=== PATIENT | male | born 1950 | race Caucasian/White ===

== ENCOUNTER 2017-06-03 16:27 | Inpatient (IN) | payer OTHER, BC ==
--- NOTE | 2017-06-03 16:30 | EDPHY ---
H & P Time Seen by Provider: 06/03/17 16:29 Constitutional: Initial Vital Signs Temperature (C) 36.7 C 06/03/17 16:30 Heart Rate 77 06/03/17 16:30 Respiratory Rate 16 06/03/17 16:30 Blood Pressure 107/65 06/03/17 16:30 O2 Sat (%) 93 06/03/17 16:30 O2 Delivery Mode Room Air Allergies/Adverse Reactions: No Known Allergies Allergy (Verified 06/03/17 16:51) Home Medications: Medication Instructions Recorded Ativan 06/03/17 Depakote 06/03/17 Risperdal 06/03/17 Medical Decision Making ED Course/Re-evaluation: CHIEF COMPLAINT: Psychiatric evaluation HISTORY OF PRESENT ILLNESS: The patient is a 66 y/o male with a history of bipolar disorder complaining his psychiatric medications are not working. He reports feeling manic and anxious. He has associated sleeplessness. He requests new medication. REVIEW OF SYSTEMS: A 10 point review of systems was performed and is negative with the exception of the elements mentioned in the history of present illness. PHYSICAL EXAM: General Appearance: Alert, well hydrated, pacing, slow to respond. Head: Atraumatic without scalp tenderness or obvious injury Eyes: Pupils equal, round, reactive to light and accommodation, EOMI, no trauma , no injection. Nose: Atraumatic, no rhinorrhea. Neck: Normal to visual inspection Respiratory: No retractions, no distress, no wheezes, and no accessory muscle use. Cardiovascular: Regular rate and rhythm, no murmurs, rubs, or gallops. Gastrointestinal: Abdomen is soft, nontender, non-distended, no masses, no rebound, no guarding, no peritoneal signs. Musculoskeletal: Normal active ROM of all extremities, atraumatic. Neurological: Alert, appropriate, and interactive. Skin: No rashes, good turgor, no nodules on palpation. Past medical history: Bipolar disorder Past surgical history: Denies Family history: Non-contributory Social history: Lives in [place], retired, non-smoker DIFFERENTIAL DIAGNOSIS: The differential diagnosis for the patient's depression included but was not limited to functional and major depression, bipolar disorder, jennifer, situational depression, medication side effect, drugs, and alcohol abuse. MEDICAL DECISION MAKING: Patient is in no acute distress and is hemodynamically stable. We are awaiting psychiatric team's evaluation. Patient has known history of psychiatric disorders and is here for evaluation. (Christian Don) Other Provider: Patient signed out to me by Dr. Don. Notified by nurse at 10:40 that patient has been accepted to [facility] for inpatient treatment. (Nico Nolan) - Data Points Laboratory Results: Laboratory Results 06/03/17 16:48 06/03/17 16:48 06/03/17 06/03/17 06/03/17 20:09 16:48 16:48 WBC 8.81 10^3/uL 10^3/uL (3.80-9.50) RBC 4.09 10^6/uL L 10^6/uL (4.40-6.38) Hgb 13.4 g/dL L g/dL (13.7-17.5) Hct 39.9 % L % (40.0-51.0) MCV 97.6 fL fL (81.5-99.8) MCH 32.8 pg pg (27.9-34.1) MCHC 33.6 g/dL g/dL (32.4-36.7) RDW 14.1 % % (11.5-15.2) Plt Count 259 10^3/uL 10^3/uL (150-400) MPV 10.4 fL fL (8.7-11.7) Neut % (Auto) 66.6 % % (39.3-74.2) Lymph % (Auto) 17.0 % % (15.0-45.0) [place] % (Auto) 11.5 % % (4.5-13.0) Eos % (Auto) 3.6 % % (0.6-7.6) Baso % (Auto) 0.5 % % (0.3-1.7) Nucleat RBC Rel Count 0.0 % % (0.0-0.2) Absolute Neuts (auto) 5.87 10^3/uL 10^3/uL (1.70-6.50) Absolute Lymphs (auto) 1.50 10^3/uL 10^3/uL (1.00-3.00) Absolute Monos (auto) 1.01 10^3/uL H 10^3/uL (0.30-0.80) Absolute Eos (auto) 0.32 10^3/uL 10^3/uL (0.03-0.40) Absolute Basos (auto) 0.04 10^3/uL 10^3/uL (0.02-0.10) Absolute Nucleated RBC 0.00 10^3/uL 10^3/uL (0-0.01) Immature Gran % 0.8 % % (0.0-1.1) Immature Gran # 0.07 10^3/uL 10^3/uL (0.00-0.10) Sodium 139 mEq/L mEq/L (135-145) Potassium 3.9 mEq/L mEq/L (3.5-5.2) Chloride 103 mEq/L mEq/L (97-110) Carbon Dioxide 25 mEq/l mEq/l (22-31) Anion Gap 11 mEq/L mEq/L (8-16) BUN 14 mg/dL mg/dL (7-23) Creatinine 0.7 mg/dL mg/dL (0.7-1.3) Estimated GFR > 60 Glucose 86 mg/dL mg/dL (70-100) Calcium 8.6 mg/dL mg/dL (8.5-10.4) Salicylates < 1.0 mg/dL L mg/dL (2.0-20.0) Urine Opiates Screen NEGATIVE (NEGATIVE) Acetaminophen < 10 mcg/mL L mcg/mL (10-30) Urine Barbiturates NEGATIVE (NEGATIVE) Ur Phencyclidine Scrn NEGATIVE (NEGATIVE) Ur Amphetamine Screen NEGATIVE (NEGATIVE) U Benzodiazepines Scrn NEGATIVE (NEGATIVE) Urine Cocaine Screen NEGATIVE (NEGATIVE) U Marijuana (THC) Screen NEGATIVE (NEGATIVE) Ethyl Alcohol < 10 mg/dL mg/dL (0-10) Medications Given: Discontinued Medications Lorazepam (Ativan) 1 mg PO EDNOW ONE Stop: 06/03/17 20:04 Last Admin: 06/03/17 20:12 Dose: 1 mg Departure - Departure Disposition: [facility] IP Clinical Impression: Bipolar disorder Condition: Fair Referrals: Patient,NotPresent [Unknown] - As per Instructions Report Scribed for: Christian Don Report Scribed by: Pauline Knowles Date of Report: 06/03/17 Time of Report: 22:13
[2017-06-03 16:57] LABS: PLATELET COUNT 259 10^3/uL (150-400)
[2017-06-03] MEDS ORDERED: LORazepam 1 MG TAB PO ONE (20:03)
[2017-06-03] MEDS ORDERED: OLANZapine DISINTEGR 5 MG TAB PO PRN (22:00)
[2017-06-03] MEDS ORDERED: MAG HYDROX/AL HYDROX/SIMETH 30 ML UDCUP PO PRN (22:00)
[2017-06-03] MEDS ORDERED: ACETAMINOPHEN 325 MG TAB PO PRN (22:00)
[2017-06-03] MEDS ORDERED: MAGNESIUM HYDROXIDE 30 ML UDCUP PO PRN (22:00)
[2017-06-03] MEDS ORDERED: LORazepam 0.5 MG TAB PO PRN (22:00)
[2017-06-04] MEDS ORDERED: MAGNESIUM HYDROXIDE 30 ML UDCUP PO PRN (10:40)
[2017-06-04] MEDS ORDERED: ACETAMINOPHEN 325 MG TAB PO PRN (10:40)
[2017-06-04] MEDS ORDERED: ALBUTEROL 60 PUFFS/8 GM MDI IH PRN (10:42)
[2017-06-04] MEDS ORDERED: DIVALPROEX NA 250 MG TAB PO SCH (10:45)
[2017-06-04] MEDS ORDERED: ALBUTEROL 200 PUFFS/18 GM MDI IH PRN (10:47)
[2017-06-04] MEDS: LORazepam 0.5 MG TAB PO SCH ×2 (11:01→20:33)
[2017-06-04] MEDS ORDERED: FLUTICASONE NASAL 120 SPRAYS/16 GM MDI EACHNARE PRN (11:51)
[2017-06-04] MEDS ORDERED: GABAPENTIN 100 MG CAP PO PRN (11:53)
[2017-06-04] MEDS ORDERED: QUEtiapine FUMARATE 25 MG TAB PO PRN ×2 (11:53→14:05)
--- NOTE | 2017-06-04 12:50 | BAPA ---
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 He is unable to explain how he got to the hospital. He says "Ask my sister." He denies feeling severe emotional distress, but then later reports having severe anxiety and "This is making me nervous." The patient is oriented to [employer], but believes it is 1984. He is unable to answer other questions regarding orientation. He is aware that he is in the hospital. He is unable to name the hospital. The patient denies feeling depressed, hopeless, or suicidal. He does report severe insomnia and not sleeping at night. He does report an overabundance of thoughts and feeling anxious about the future. He denies auditory hallucinations or paranoia. The patient is a poor historian, and he gets up and walks away from the interview at times. Per the emergency room evaluation, the patient was taken by his sister to the [facility] walk-in clinic and then transferred to the emergency department. He reportedly according to his sister, phone number [phone], has had severe insomnia, pacing at night, scratching his face, reporting severe anxiety, and appearing agitated and disorganized beyond his baseline. His sister reports the patient has chronic cognitive impairment, with difficulty caring for himself. He is able to feed himself and dress himself, but needs daily support for medication compliance. The patient's brother in [place] is his payee for his pension. The sister also reports the patient has a visiting nurse from a home health agency, and the patient has a history of long term facility placements for poor self-care. The sister has not observed any delusional content or any aggressive behavior or self-injurious behavior other than the patient scratching himself. PAST PSYCHIATRIC HISTORY: The patient is unable to explain his current mental health treatment. He does endorse past psychiatric hospitalizations, but is unable to explain where. In our computer, it indicates the patient was hospitalized at [facility] in 2012 and 2013. The patient's sister reports the patient is currently in outpatient mental health treatment with Dr. Rosie Pires at [facility] in [place]. MEDICATIONS: Per the patient's sister, the patient takes Depakote 250 p.o. b.i.d., Ativan 0.5 mg p.o. b.i.d., gabapentin 100 mg p.o. q.h.s., atorvastatin 10 mg p.o. q.h.s., trazodone 25 mg p.o. q.h.s. p.r.n. for insomnia, and albuterol inhaler p.r.n. for asthma. The pharmacy records reported to our pharmacy is that the patient may have been taking a low dose of Risperdal recently, perhaps 0.25. The patient also may have been prescribed other doses of Depakote such as 375 b.i.d., as well as levothyroxine 50 mcg a day and Singulair 10 mg a day. ALLERGIES: No known drug allergies. PAST MEDICAL HISTORY: The patient's sister is unclear about the patient's medical history. Based on the patient's medications, it appears the patient has a history of hyperlipidemia and hypothyroidism. The patient also appears to have some weakness in his left upper extremity of unclear duration. SOCIAL HISTORY: The patient is a poor historian. He reports he was raised by his parents in [place], [place]. He reports he graduated from college. He has never been . He has never been in the . 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 He is unable to explain how long. He has no children. He reports his brother in [place] manages his pension. He lives in a [facility] that he owns with his sister. The patient denies childhood abuse or neglect. FAMILY HISTORY: The patient's brother, mother, and father all apparently committed suicide. VITAL SIGNS: He is 167 cm tall and 67.5 kg, with a BMI of 24. This morning, his vitals are 129/84, heart rate 84, respiratory rate 16, pulse ox 99% on room air, and temperature afebrile. LABORATORY DATA: White blood cell count 8.8, hemoglobin 13.4, platelet count 259. Sodium 139, potassium 3.9, creatinine 0.7, glucose 86, calcium 8.6, total bilirubin 0.7, AST 30, ALT 31, alk phos 65, albumin 3.6. B12 930. TSH 3.0. Urine drug screen was negative. Alcohol negative. Acetaminophen negative. Salicylates negative. An add-on Depakote level is pending. MENTAL STATUS EXAMINATION: He is an alert white male, who is overweight. He is ambulatory. He appears to have some element of contraction in his left upper extremity, but is moving all 4 extremities. He has mild cogwheeling. The patient has an intense stare. His speech is regular in rate and rhythm, but very few words. He has fragmented responses to questions. He is oriented to May and hospital, but not the day of the week, day of the month, year, or name of the hospital. He is able to draw a kaw and put markers in for the face of a clock, but he is unable to put the hands on the clock. He appears to have severe cognitive impairment. He describes his mood as, "I want to be an artist." His affect is euphoric and excited. He also appears anxious and is standing up and pacing at times. He denies any thoughts to hurt himself or others. He denies paranoia or hallucinations. He has poor insight and impaired judgment. ASSESSMENT: Unspecified bipolar disorder, major neurocognitive disorder of unknown type. PLAN: 1. The patient appears gravely disabled by cognitive impairment and does not appear able to care for himself. However, he has been living in a condominium that he apparently owns with daily support from his sister, as well as a home health agency. 2. The patient apparently has symptoms of anxiety and bipolar disorder, with self-harming behaviors including scratching his face, pacing, severe agitation, and severe insomnia, so he is not apparently at his baseline level of functioning. Therefore, we will monitor the patient on the unit and restart Depakote 250 b.i.d., Ativan 0.5 mg p.o. b.i.d., and gabapentin 100 mg p.o. q.h.s., and monitor the patient's behavior and symptoms. 3. I ordered an extra dose of gabapentin 100 mg p.o. q.h.s. p.r.n. for insomnia. 4. I ordered Seroquel 12.5 mg p.o. q.4 hours p.r.n. for severe agitation or psychosis. The patient appears to have mild increased tone and may have a Parkinson disease spectrum disorder, so we will avoid high potency antipsychotics at this time. 5. I ordered p.r.n. albuterol as well as the patient's Singulair for his history of asthma. 6. The Depakote level is pending. Depending on this dosing, we will probably increase the patient's Depakote as the patient appears to be manic, as he has a euphoric affect and appears hyperkinetic on the unit, and has had severe insomnia. 7. Order levothyroxine 50 mcg daily per the pharmacy's report. The patient's TSH in the ER was normal. 8. We will monitor the patient's behavior on the unit. 9. The patient will be on an M1 hold for grave disability, as the patient does not appear competent to care for himself if he were to sign out of the hospital in the middle of the night. 10. We will attempt to get collateral information from Dr. Pires at [facility]. 11. When the patient is calm and cooperative, we will try to obtain a baseline head CT scan to rule out cerebrovascular disease causing cognitive impairment. The patient will have a baseline physical exam by the hospitalist later today. ADDENDUM: 1. Ordered baseline Head CT without contrast. Sister reported cognitive impairment and SNF placement for most of past 2 years, with falling episodes one year ago evaluated by Neurology at [facility]. 2. Patient signed MARIANELA for [facility], left a message for Dr. Pires requesting call back 3. Valproic Acid level 75. Increased Depakote 250mg BID to target anxiety, agitation, insomnia 4. Requested social work consult due to sister reporting difficulty monitoring patient 24 hours a day 7 days a week. She reported patient receives in home services from Sandra at [facility]. /[id number]/MODL MTDD
--- NOTE | 2017-06-04 13:46 | SOAPPROG ---
SOAP Progress Note Assessment/Plan: Assessment: Bipolar Disorder Anxiety, Insomnia Major Neurocognitive Disorder Sister Anita reports patient has been in nursing homes for 2 years for cognitive impairment. Patient had episodes of falling and hitting his head one year ago and was evaluated to [facility] and had a Neurology evaluation. Sister reports patient has anxiety and agitation and insomnia and she is having difficulty caring for patient. Plan reviewed with sister: Increase Depakote 250mg TID for bipolar disorder. Increase Ativan 0.5mg BID for anxiety Check Depakote level and BMP on Wednesday06/07/17 Monitor anxiety, insomnia, and irritability Social Work Consult Ordered baseline Head CT scan without contrast. Left message at [facility] with Dr. Pires for collateral, patient signed a MARIANELA 06/04/17 13:27 Objective: Vital Signs Temp Pulse Resp BP Pulse Ox 36.4 C 84 16 129/84 H 99 06/04/17 03:36 06/04/17 03:36 06/04/17 03:36 06/04/17 03:36 06/04/17 03:36 - Pending Discharge Pending Discharge Within 24 Hours: No Pending Discharge Within 48 Hours: No ICD10 Worksheet Patient Problems: Problems Problem Status Onset Bipolar disorder Acute Insomnia Acute Major neurocognitive disorder Acute Asthma Acute Hyperlipidemia Acute
[2017-06-04] MEDS: DIVALPROEX NA 250 MG TAB PO SCH ×2 (16:39→20:30)
[2017-06-04] MEDS: MONTELUKAST SODIUM 10 MG TAB PO SCH (16:40)
--- NOTE | 2017-06-04 17:18 | PDGENHP ---
History and Physical - Chief Complaint increased anxiety, jennifer symptoms - History of Present Illness 66 yo male with h/o bipolar disorder and cognitive impairment presented to ED with disorganized thoughts, anxiety, insomnia, agitation and concern that his bipolar meds were not working. Some self harm behaviors are noted with face scratching. No reported suicidality or homicidality. He was transferred to [address] [place] [address] for psychiatric stabilization. He then returned to [facility] for CT head, ordered by psychiatry team and I saw him here in the CT department. History Information - Allergies/Home Medication List Allergies/Adverse Reactions: No Known Allergies Allergy (Verified 06/03/17 16:51) Home Medications: Albuterol Sulfate [ALBUTEROL SULFATE] 3 ml IH Q6 PRN 06/04/17 [Last Taken Unknown] Albuterol [Proventil Inhaler HFA (*)] 2 puffs IH Q6 PRN 06/04/17 [Last Taken Unknown] Atorvastatin Calcium [Lipitor 10 mg (*)] 10 mg PO HS 06/04/17 [Last Taken Unknown] Diphenoxylate HCl/Atropine [Diphenoxylate-Atropine Tablet] 1 each PO Q6 PRN [Last Taken Unknown] Divalproex Sodium 250 mg PO DAILY@14 06/04/17 [Last Taken Unknown] Divalproex Sodium 375 mg PO BID 06/04/17 [Last Taken Unknown] Fluticasone Nasal [Flonase Nasal [place] (RX)] 1 sprays [place] DAILY PRN [Last Taken Unknown] Gabapentin [Neurontin 100 MG (*)] 100 mg PO HS 06/04/17 [Last Taken Unknown] LORazepam [Ativan (*)] 0.25 mg PO DAILY@14 06/04/17 [Last Taken Unknown] Levothyroxine [Synthroid 50 mcg (*)] 50 mcg PO DAILY06 06/04/17 [Last Taken Unknown] Lidocaine [Lidoderm] 1 each TP DAILY 06/04/17 [Last Taken Unknown] Montelukast Sodium [Singulair 10 mg (*)] 10 mg PO DAILY@1800 06/04/17 [Last Taken Unknown] traZODone [traZODONE 50MG (*)] 75 mg PO HS 06/04/17 [Last Taken Unknown] I have personally reviewed and updated: family history, medical history, social history, surgical history - Past Medical History asthma, hyperlipidemia Additional medical history: bipolar disorder. cognitive impairment. hypothyroidism - Surgical History Reports: no pertinent surgical hx - Family History Additional family history: Brother, mother and father by suicide - Social History Smoking Status: Never smoked Alcohol Use: None Additional social history: Lives independently with his sister Review of Systems Review of Systems: ROS: 10pt was reviewed & negative except for what was stated in HPI & below Physical Exam Physical Exam: Temp Pulse Resp BP Pulse Ox 36.4 C 84 16 129/84 H 99 06/04/17 03:36 06/04/17 03:36 06/04/17 03:36 06/04/17 03:36 06/04/17 03:36 Lab Data & Imaging Review 06/03/17 16:48 06/03/17 16:48 WBC 8.81 10^3/uL (3.80-9.50) 06/03/17 16:48 RBC 4.09 10^6/uL (4.40-6.38) L 06/03/17 16:48 Hgb 13.4 g/dL (13.7-17.5) L 06/03/17 16:48 Hct 39.9 % (40.0-51.0) L 06/03/17 16:48 MCV 97.6 fL (81.5-99.8) 06/03/17 16:48 MCH 32.8 pg (27.9-34.1) 06/03/17 16:48 MCHC 33.6 g/dL (32.4-36.7) 06/03/17 16:48 RDW 14.1 % (11.5-15.2) 06/03/17 16:48 Plt Count 259 10^3/uL (150-400) 06/03/17 16:48 MPV 10.4 fL (8.7-11.7) 06/03/17 16:48 Neut % (Auto) 66.6 % (39.3-74.2) 06/03/17 16:48 Lymph % (Auto) 17.0 % (15.0-45.0) 06/03/17 16:48 [place] % (Auto) 11.5 % (4.5-13.0) 06/03/17 16:48 Eos % (Auto) 3.6 % (0.6-7.6) 06/03/17 16:48 Baso % (Auto) 0.5 % (0.3-1.7) 06/03/17 16:48 Nucleat RBC Rel Count 0.0 % (0.0-0.2) 06/03/17 16:48 Absolute Neuts (auto) 5.87 10^3/uL (1.70-6.50) 06/03/17 16:48 Absolute Lymphs (auto) 1.50 10^3/uL (1.00-3.00) 06/03/17 16:48 Absolute Monos (auto) 1.01 10^3/uL (0.30-0.80) H 06/03/17 16:48 Absolute Eos (auto) 0.32 10^3/uL (0.03-0.40) 06/03/17 16:48 Absolute Basos (auto) 0.04 10^3/uL (0.02-0.10) 06/03/17 16:48 Absolute Nucleated RBC 0.00 10^3/uL (0-0.01) 06/03/17 16:48 Immature Gran % 0.8 % (0.0-1.1) 06/03/17 16:48 Immature Gran # 0.07 10^3/uL (0.00-0.10) 06/03/17 16:48 Sodium 139 mEq/L (135-145) 06/03/17 16:48 Potassium 3.9 mEq/L (3.5-5.2) 06/03/17 16:48 Chloride 103 mEq/L (97-110) 06/03/17 16:48 Carbon Dioxide 25 mEq/l (22-31) 06/03/17 16:48 Anion Gap 11 mEq/L (8-16) 06/03/17 16:48 BUN 14 mg/dL (7-23) 06/03/17 16:48 Creatinine 0.7 mg/dL (0.7-1.3) 06/03/17 16:48 Estimated GFR > 60 06/03/17 16:48 Glucose 86 mg/dL (70-100) 06/03/17 16:48 Calcium 8.6 mg/dL (8.5-10.4) 06/03/17 16:48 Total Bilirubin 0.7 mg/dL (0.1-1.4) 06/03/17 16:48 Conjugated Bilirubin 0.2 mg/dL (0.0-0.5) 06/03/17 16:48 Unconjugated Bilirubin 0.5 mg/dL (0.0-1.1) 06/03/17 16:48 AST 30 IU/L (17-59) 06/03/17 16:48 ALT 31 IU/L (21-72) 06/03/17 16:48 Alkaline Phosphatase 65 IU/L (38-126) 06/03/17 16:48 Total Protein 6.6 g/dL (6.3-8.2) 06/03/17 16:48 Albumin 3.6 g/dL (3.5-5.0) 06/03/17 16:48 Vitamin B12 930 pg/mL (239-931) 06/03/17 16:48 TSH 3.020 uIU/mL (0.465-4.680) 06/03/17 16:48 Salicylates < 1.0 mg/dL (2.0-20.0) L 06/03/17 16:48 Urine Opiates Screen NEGATIVE (NEGATIVE) 06/03/17 20:09 Acetaminophen < 10 mcg/mL (10-30) L 06/03/17 16:48 Urine Barbiturates NEGATIVE (NEGATIVE) 06/03/17 20:09 Valproic Acid 75.2 mcg/mL (50.0-150.0) 06/03/17 16:48 Ur Phencyclidine Scrn NEGATIVE (NEGATIVE) 06/03/17 20:09 Ur Amphetamine Screen NEGATIVE (NEGATIVE) 06/03/17 20:09 U Benzodiazepines Scrn NEGATIVE (NEGATIVE) 06/03/17 20:09 Urine Cocaine Screen NEGATIVE (NEGATIVE) 06/03/17 20:09 U Marijuana (THC) Screen NEGATIVE (NEGATIVE) 06/03/17 20:09 Ethyl Alcohol < 10 mg/dL (0-10) 06/03/17 16:48 Assessment & Plan Assessment: Bipolar disorder - decompensated. Per psych team, cont depakote, ativan. PRN Seroquel for agitation / psychosis. Cognitive impairment - agree with head CT, pending Hypothyroidism - TSH normal, cont levothyroxine Hyperlipidemia - cont statin Asthma - no e/o flare, cont prn albuterol, noting this may increase agitation Full code Dispo - Inpatient, will likely require >48 hrs hospitalization for psychiatric stabilization
[2017-06-04] MEDS: GABAPENTIN 100 MG CAP PO SCH (20:33)
[2017-06-05] MEDS ORDERED: LEVOTHYROXINE 50 MCG TAB PO SCH (06:00)
[2017-06-05] MEDS: LORazepam 0.5 MG TAB PO SCH ×2 (08:29→20:41)
[2017-06-05] MEDS: ATORVASTATIN CALCIUM 10 MG TAB PO SCH (08:29)
[2017-06-05] MEDS: DIVALPROEX NA 250 MG TAB PO SCH ×3 (08:30→20:41)
[2017-06-05] MEDS: MONTELUKAST SODIUM 10 MG TAB PO SCH (15:55)
[2017-06-05] MEDS: GABAPENTIN 100 MG CAP PO SCH (20:41)
--- NOTE | 2017-06-06 08:47 | SOAPPROG ---
SOAP Progress Note Assessment/Plan: Assessment: 66yo CM w/ hx BMD and neurocognitive d/o 06/05/17 16:46 per staff, pt slept 9+ hrs. noted on AM VS while in bed with spO2 85% and given supplemental O2. after up and around, not requiring extra O2 anymore. not using walker which he was given instead of cane on unit. told RN he did fall 2 wks prior to admit. has been calling sister, anxious and worried about not getting the right meds. sister reportedly has called [facility] today expressing that she is not able to manage him at home (altho she is living in his condo reportedly helping care for him). see CC note on eval, pt was disheveled, older CM, unshaven, engaging, polite, cooperative, talkative, mood "okay so far", affect bright with occasional inappropriate smiling altho this did not seem related to any responding to internal stim. no overt delusions. thoughts with linear responses. Denied any AH/VH or any SI/HI. i/j both impaired. oriented to 3rd month, 16 day (actually 17) and not able to state year but readily chose 2017 from multiple choice of years. did sit calmly for firt 10-15min of interview but eventually stood up and paced by chair, stating "I have to do that sometimes." denied current physical complaints. PLAN: -cont on current meds. seems with some improvement since admission presentation -?akathesia from medications, seems less severe compared to earlier in admission. ?tardive akathisia if with long hx of neuroleptic use, ? related to underlying neurological deficits or restless legs syndrome,?Fe deficiency. Monitor. -Continues on fall prec., -cont on STC -address placement issue with family and sister's early refusal of having him return. needing stabilization and reassessment perhaps also assessment by OT,ST once stable psychiatrically to determine appropriate level of care needed. -Head CT notes diffuse cerebral and cerebellar atrophy. d/w neuro. seems may have some more focal atrophy ant temp lobes -ck VS qshift for now and monitor O2 sats. has asthma with albuterol MDI prn avail, encourage use as indicated -PT eval ordered Objective: Vital Signs Temp Pulse Resp BP Pulse Ox 36.7 C 87 18 127/73 H 95 06/05/17 16:00 06/05/17 16:00 06/05/17 16:00 06/05/17 16:00 06/05/17 16:00 - Time Spent With Patient Time Spent With Patient: 35min - Pending Discharge Pending Discharge Within 24 Hours: No Pending Discharge Within 48 Hours: No ICD10 Worksheet Patient Problems: Problems Problem Status Onset Anxiety Acute Bipolar disorder Acute Insomnia Acute Major neurocognitive disorder Acute Asthma Acute Hyperlipidemia Acute Hypothyroid Acute
--- NOTE | 2017-06-06 11:15 | SOAPPROG ---
SOAP Progress Note Assessment/Plan: Assessment: 66yo CM w/ hx BMD and neurocognitive d/o 06/05/17 16:46 per staff, pt slept 9+ hrs. noted on AM VS while in bed with spO2 85% and given supplemental O2. after up and around, not requiring extra O2 anymore. not using walker which he was given instead of cane on unit. told RN he did fall 2 wks prior to admit. has been calling sister, anxious and worried about not getting the right meds. sister reportedly has called CC today expressing that she is not able to manage him at home (altho she is living in his condo reportedly was helping care for him). see CC note for details. on eval, pt was disheveled, older CM, unshaven, engaging, polite, cooperative, talkative, mood "okay so far", affect bright with occasional inappropriate smiling altho this did not seem related to any responding to internal stim. no overt delusions. thoughts with linear responses. Denied any AH/VH or any SI/HI. i/j both impaired. oriented to 3rd month, 16th day (actually 17) and not able to state year but readily chose 2017 from multiple choice of years. did sit calmly for firt 10-15min of interview but eventually stood up and paced by chair, stating "I have to do that sometimes." denied current physical complaints. PLAN: -cont on current meds. seems with some improvement since admission presentation -?akathesia from medications, seems less severe compared to earlier in admission. ?tardive akathisia if with long hx of neuroleptic use, ? related to underlying neurological deficits or restless legs syndrome,? Fe deficiency. Monitor. -Continues on fall prec., -cont on STC -address placement issue with family and sister's early refusal of having him return. needing stabilization and reassessment perhaps also assessment by OT,ST once stable psychiatrically to determine appropriate level of care needed. -Head CT notes diffuse cerebral and cerebellar atrophy. d/w neuro. seems may have some more focal atrophy ant temp lobes -ck VS qshift for now and monitor O2 sats. has asthma with albuterol MDI prn avail, encourage use as indicated -PT eval ordered 06/06/17 11:09 per staff, pt slept 16hr. has been taking meds. CC will talk with pt's prior home caregiver today. Objective: Vital Signs Temp Pulse Resp BP Pulse Ox 36.7 C 87 18 127/73 H 95 06/05/17 16:00 06/05/17 16:00 06/05/17 16:00 06/05/17 16:00 06/05/17 16:00 - Pending Discharge Pending Discharge Within 24 Hours: No Pending Discharge Within 48 Hours: No ICD10 Worksheet Patient Problems: Problems Problem Status Onset Anxiety Acute Bipolar disorder Acute Insomnia Acute Major neurocognitive disorder Acute Asthma Acute Hyperlipidemia Acute Hypothyroid Acute
[2017-06-06] MEDS: LORazepam 0.5 MG TAB PO SCH ×2 (11:41→19:08)
[2017-06-06] MEDS: DIVALPROEX NA 250 MG TAB PO SCH ×3 (11:41→18:15)
[2017-06-06] MEDS: ATORVASTATIN CALCIUM 10 MG TAB PO SCH (11:41)
[2017-06-06] MEDS: LEVOTHYROXINE 50 MCG TAB PO SCH (11:41)
[2017-06-06] MEDS: MONTELUKAST SODIUM 10 MG TAB PO SCH (16:06)
[2017-06-06] MEDS: GABAPENTIN 100 MG CAP PO SCH (19:08)
[2017-06-07] MEDS: LEVOTHYROXINE 50 MCG TAB PO SCH ×2 (08:22→10:46)
[2017-06-07] MEDS: LORazepam 0.5 MG TAB PO SCH ×2 (08:22→10:46)
[2017-06-07] MEDS: ATORVASTATIN CALCIUM 10 MG TAB PO SCH ×2 (08:22→10:46)
[2017-06-07] MEDS: DIVALPROEX NA 250 MG TAB PO SCH ×4 (08:22→19:51)
[2017-06-07] MEDS ORDERED: LORazepam 0.5 MG TAB PO PRN (12:41)
--- NOTE | 2017-06-07 13:50 | SOAPPROG ---
SOAP Progress Note Assessment/Plan: Assessment: Bipolar Disorder Anxiety, Insomnia Major Neurocognitive Disorder - probable moderate/severe Alzheimer's Disease Possible TD movements of lower face and hand Patient is calm and has been sleeping >10 hours over weekend but has severe cognitive impairment. Head CT and blood work not supportive of alternative causes of cognitive impairment other than neurodegenerative disorder. Medication list from Patient refused blood draw this AM 06/07/17 to check Depakote level. Recent medication list from nursing team indicates that patient was recently on Thiamine, ASA, Lipitor, levothyroxine 50mcg, folic acid, lorazepam 1mg QHS, Trileptal 450mg BID, Lamictal 25mg BID, Risperdal 0.5mg TID, Lunesta 1mg QHS - very incongruent with report from patients sister/caregiver. Plan: Continue Depakote 250mg TID Reduce Ativan 0.5mg PO QHS Discontinue scheduled HS gabapentin, ordered 100mg QHS PRN insomnia Start Aricept 5mg QAM. Monitor for bradycardia, diarrhea, nausea. Vitals BID Supportive care Reviewed with direct care counselor that patient will need 24 hour care after discharge to prevent accidents or wandering and to provide support for ADLS, medication monitoring, assistance in follow up; patient may need medical guardian to consent for restraint for blood-work Awaiting call back from P regarding recent treatment Ordered ASA, Lipitor, Levothyroxine, folic acid 06/07/17 13:52 Subjective: CC: "OK" "Pretty Well" "Always Irritated." Patient is a poor historian. With structured questions denies feeling sedated or slowed. Denies feeling hopeless or suicidal. Endorses symptoms of bipolar disorder and many outpatient treatment and inpatient treatment episodes since his 's. Unable to name past medication trials or past hospitals. Denies AH or VH. Reports chronic agitation and irritability 'my whole life.' Denies plan to hurt himself or others. Agrees his care should be coordinated with brother and sister. Patient scored 02/18 and is not oriented to date or recent events that led to hospitalization. Objective: Vital Signs Temp Pulse Resp BP Pulse Ox 37.1 C 78 14 98/64 L 96 06/07/17 13:40 06/07/17 13:40 06/07/17 13:40 06/07/17 13:40 06/07/17 13:40 Alert WM. Appears euthymic with smiling, briefly anxious. Ambulatory without focal weakness but mild ataxia. Speech soft, RRR. Mood "OK" "Pretty Well" "Always Irritated." Thoughts brief, illogical at times. Memory severely impaired, scored 11/30 on SLUMS. Denies SI or HI or AH. Insight poor. Staff report patient cooperative, quiet, slept 13 hours overnight. - Time Spent With Patient Time Spent With Patient: 25 minutes - Pending Discharge Pending Discharge Within 24 Hours: No Pending Discharge Within 48 Hours: No ICD10 Worksheet Patient Problems: Problems Problem Status Onset Anxiety Acute Bipolar disorder Acute Insomnia Acute Major neurocognitive disorder Acute Asthma Acute Hyperlipidemia Acute Hypothyroid Acute
[2017-06-07] MEDS: THIAMINE HCL 100 MG TAB PO SCH (16:06)
[2017-06-07] MEDS: MONTELUKAST SODIUM 10 MG TAB PO SCH (17:17)
[2017-06-07] MEDS ORDERED: LORazepam 0.5 MG TAB PO SCH (21:00)
[2017-06-08] MEDS: THIAMINE HCL 100 MG TAB PO SCH (08:29)
[2017-06-08] MEDS: FOLIC ACID 1 MG TAB PO SCH (08:30)
[2017-06-08] MEDS: ATORVASTATIN CALCIUM 10 MG TAB PO SCH (08:30)
[2017-06-08] MEDS: DIVALPROEX NA 250 MG TAB PO SCH ×2 (08:30→19:22)
[2017-06-08] MEDS: ASPIRIN EC 81 MG TAB PO SCH (08:30)
[2017-06-08] MEDS ORDERED: DONEPEZIL HCL 5 MG TAB PO SCH ×2 (09:00→16:31)
[2017-06-08] MEDS ORDERED: LORazepam 0.5 MG TAB PO SCH (09:22)
--- NOTE | 2017-06-08 09:26 | SOAPPROG ---
SOAP Progress Note Assessment/Plan: Assessment: Unspecified Bipolar Disorder Anxiety, Insomnia - improved Major Neurocognitive Disorder - probable moderate/severe Alzheimer's Disease Probable Tardive Dyskinesia Patient is calm and slept overnight. Episodic anxiety likely related to cognitive impairment. Plan: Continue Depakote 250mg TID Reduce Ativan 0.25mg PO QHS Aricept 5mg QAM. Monitor for bradycardia, diarrhea, nausea. Vitals BID Supportive care Check AM Depakote level and BMP Reviewed with healthcare economics manager: patient needs 24hour supervision after discharge due to risk of accidents and wandering and needs a guardian for medical decision making 06/08/17 09:27 Subjective: CC: "OK" "Alright" Patient denies feeling slowed or tired or sedated. Denies sleeping excessively. Denies feeling anxious, agitated, hopeless, or sad. Unable to explain why he is in the hospital. Agreeable with care coordination with brother in [place] and sister in [place]. Objective: Vital Signs Temp Pulse Resp BP Pulse Ox 36.6 C 80 16 124/67 H 97 06/08/17 06:44 06/08/17 06:44 06/08/17 06:44 06/08/17 06:44 06/08/17 06:44 Alert WM. Ambulatory. Mild AIM of lower face and rocking movements. Speech soft, few words. Mood 'OK' 'Alright' Affect odd smiling. Thoughts brief with little detail. Denies violent or suicidal thoughts. Denies paranoia or AH. Memory poor, not oriented to month or year or name of hospital. Insight limited. Judgment impaired. Staff report patient slept 9 hours, cooperative with medication and meals. PT evaluated patient for gait, no current plan for assisted device. - Time Spent With Patient Time Spent With Patient: 15 minutes - Pending Discharge Pending Discharge Within 24 Hours: No Pending Discharge Within 48 Hours: No ICD10 Worksheet Patient Problems: Problems Problem Status Onset Anxiety Acute Bipolar disorder Acute Insomnia Acute Major neurocognitive disorder Acute Asthma Acute Hyperlipidemia Acute Hypothyroid Acute
[2017-06-08] MEDS: LEVOTHYROXINE 50 MCG TAB PO SCH (10:54)
[2017-06-08] MEDS: MONTELUKAST SODIUM 10 MG TAB PO SCH (17:13)
[2017-06-09] MEDS ORDERED: LOPERAMIDE HCL 2 MG CAP PO ONE (09:14)
--- NOTE | 2017-06-09 09:14 | SOAPPROG ---
SOAP Progress Note Assessment/Plan: Assessment: Unspecified Bipolar Disorder Anxiety, Insomnia - improved Major Neurocognitive Disorder - probable moderate/severe Alzheimer's Disease Probable Tardive Dyskinesia Patient is calm and slept overnight and eating well on unit but has severe memory impairment. Episodic anxiety and agitation likely related to cognitive impairment. Plan: Continue Depakote 750mg QHS Continue Ativan 0.25mg PO QHS Discontinue Aricept due to GI side effects One time Loperamide dose for diarrhea Supportive care Coordinate discharge planning with brother and sister 06/09/17 09:19 Subjective: CC: 'Alright' Patient denies problems. Endorses nausea and diarrhea. Denies anxiety or agitation or irritability. Denies SI or HI or paranoia. Agrees to discharge planning with brother and sister. Objective: Vital Signs Temp Pulse Resp BP Pulse Ox 36.6 C 61 16 118/59 L 96 06/09/17 00:30 06/09/17 00:30 06/09/17 00:30 06/09/17 00:30 06/09/17 00:30 Laboratory Results 06/09/17 06:30 Alert WM, malodorous. AIM of lower face, some rocking movements. Speech soft few words. Affect euthymic, pleasant. Mood 'alright' Thoughts briefly organized with minimal information. Denies SI or violent thoughts. Denies AH or paranoia. Limited insight. Memory impaired: not oriented to month, year or president. abnormal clockdrawing. Minimal insight. Staff report patient slept 9.5 hours. Patient had nausea yesterday and diarrhea this AM probably secondary to Aricept. Patient has been calm on unit but having difficulty with bathing. Eating meals and cooperative with medication. Valp 76 BMP WNL - Time Spent With Patient Time Spent With Patient: 15 minutes - Pending Discharge Pending Discharge Within 24 Hours: No Pending Discharge Within 48 Hours: No ICD10 Worksheet Patient Problems: Problems Problem Status Onset Anxiety Acute Bipolar disorder Acute Insomnia Acute Major neurocognitive disorder Acute Asthma Acute Hyperlipidemia Acute Hypothyroid Acute
[2017-06-09] MEDS: ATORVASTATIN CALCIUM 10 MG TAB PO SCH (09:20)
[2017-06-09] MEDS: ASPIRIN EC 81 MG TAB PO SCH (09:21)
[2017-06-09] MEDS: LEVOTHYROXINE 50 MCG TAB PO SCH (09:21)
[2017-06-09] MEDS: FOLIC ACID 1 MG TAB PO SCH (09:21)
[2017-06-09] MEDS: THIAMINE HCL 100 MG TAB PO SCH (09:21)
[2017-06-09] MEDS: MAG HYDROX/AL HYDROX/SIMETH 30 ML UDCUP PO PRN (10:23)
[2017-06-09] MEDS ORDERED: FAMOTIDINE 20 MG TAB PO ONE (13:58)
[2017-06-09] MEDS: LORazepam 0.5 MG TAB PO SCH ×3 (14:37→19:38)
[2017-06-09] MEDS ORDERED: LORazepam 0.5 MG TAB PO SCH (16:00)
[2017-06-09] MEDS: MONTELUKAST SODIUM 10 MG TAB PO SCH (17:23)
[2017-06-09] MEDS: DIVALPROEX NA 250 MG TAB PO SCH (19:38)
[2017-06-09] MEDS: FAMOTIDINE 20 MG TAB PO SCH (19:38)
[2017-06-10] MEDS: FAMOTIDINE 20 MG TAB PO SCH ×2 (08:24→19:56)
[2017-06-10] MEDS: LORazepam 0.5 MG TAB PO SCH ×3 (08:25→19:58)
[2017-06-10] MEDS: ASPIRIN EC 81 MG TAB PO SCH (08:25)
[2017-06-10] MEDS: THIAMINE HCL 100 MG TAB PO SCH (08:25)
[2017-06-10] MEDS: LEVOTHYROXINE 50 MCG TAB PO SCH (08:25)
[2017-06-10] MEDS: ATORVASTATIN CALCIUM 10 MG TAB PO SCH (08:25)
[2017-06-10] MEDS: FOLIC ACID 1 MG TAB PO SCH (08:25)
[2017-06-10] MEDS: MAG HYDROX/AL HYDROX/SIMETH 30 ML UDCUP PO PRN (08:34)
[2017-06-10 09:01] LABS: CREATINE KINASE 206 IU/L (0-224)
[2017-06-10] MEDS ORDERED: MAGNESIUM CITRATE 300 ML BOTTLE PO PRN (11:51)
--- NOTE | 2017-06-10 11:56 | SOAPPROG ---
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 Patient had nausea with Aricept and Ativan taper Plan: Continue Depakote 750mg QHS Continue Ativan 0.25mg PO TID Start Senokot BID; PRN MOM or Mag Citrate Coordinate discharge planning with sister, brother, adult protective services 06/10/17 11:56 Subjective: CC: "OK, doing well" Patient denies feeling anxious, sad, irritable, agitation. Reports possible constipation. Denies violent or suicidal thoughts. Unable to name month, year , or location. Agrees to have discharge planning coordinated with brother and sister and APS. Objective: Vital Signs Temp Pulse Resp BP Pulse Ox 36.2 C 66 20 126/73 H 95 06/10/17 06:44 06/10/17 06:44 06/10/17 06:44 06/10/17 06:44 06/10/17 06:44 Laboratory Results 06/09/17 06:30 Alert WM, ambulatory, some contracture in LUE. AIM of lower face and some rocking. Speech soft few words. Mood '"OK, doing well." Affect euthymic. Thoughts fragmented with little information. Denies SI or HI or AH or paranoia. Severe memory impairment. Limited insight. Add on CK level 206 (WNL) Staff report patient slept overnight but complained of constipation, given MOM. Staff report patient calm and pleasant and cooperative. clinical education academic coordinator notified Adult Protective Services that patient needs complete care/supervision in his home; APS has been involved with patient/sister multiple times prior. - Time Spent With Patient Time Spent With Patient: 10 minutes - Pending Discharge Pending Discharge Within 24 Hours: No Pending Discharge Within 48 Hours: No ICD10 Worksheet Patient Problems: Problems Problem Status Onset Anxiety Acute Bipolar disorder Acute Insomnia Acute Major neurocognitive disorder Acute Asthma Acute Hyperlipidemia Acute Hypothyroid Acute
[2017-06-10] MEDS: MONTELUKAST SODIUM 10 MG TAB PO SCH (18:23)
[2017-06-10] MEDS: SENNOSIDES 1 TAB PO SCH (19:57)
[2017-06-10] MEDS: DIVALPROEX NA 250 MG TAB PO SCH (19:57)
[2017-06-11] MEDS: LORazepam 0.5 MG TAB PO SCH ×2 (08:30→20:32)
[2017-06-11] MEDS: ATORVASTATIN CALCIUM 10 MG TAB PO SCH (08:30)
[2017-06-11] MEDS: FOLIC ACID 1 MG TAB PO SCH (08:31)
[2017-06-11] MEDS: ASPIRIN EC 81 MG TAB PO SCH (08:31)
[2017-06-11] MEDS: THIAMINE HCL 100 MG TAB PO SCH (08:32)
[2017-06-11] MEDS: SENNOSIDES 1 TAB PO SCH ×2 (08:32→20:32)
[2017-06-11] MEDS: LEVOTHYROXINE 50 MCG TAB PO SCH (08:50)
[2017-06-11] MEDS: FAMOTIDINE 20 MG TAB PO SCH ×2 (08:50→20:32)
[2017-06-11] MEDS: GABAPENTIN 100 MG CAP PO PRN (09:07)
--- NOTE | 2017-06-11 09:07 | SOAPPROG ---
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 Patient had nausea with Aricept trial and Ativan taper, now having increased anxiety. Plan: Continue Depakote 750mg QHS Increase Ativan 0.5mg BID due to possible withdrawal symptoms and history of catatonia/NMS Coordinate discharge planning with sister, brother, adult protective services Supportive care Typed letter that patient needs guardian - medical/financial decision making 06/11/17 09:09 Subjective: CC: "OK" "Don't feel well" Patient reports sleeping well and eating breakfast. Reports feeling anxious and sick at times, unable to give details. Denies vomitting. Denies abdominal pain. Denies feeling slowed or stiff. Endorses feeling nervous but unable to give details. Denies violent or suicidal thoughts. Objective: Vital Signs Temp Pulse Resp BP Pulse Ox 36.6 C 61 20 126/61 H 98 06/11/17 06:50 06/11/17 06:50 06/11/17 06:50 06/11/17 06:50 06/11/17 06:50 Laboratory Results 06/09/17 06:30 Alert WM ambulating with wide gain. Possible contractions LUE. Some rocking and AIM of lower face. Trace extension tremor. Mild increased tone RUE. Speech soft few words. Affect anxious with staring at times and internal preoccupation at times. Mood 'OK' and 'don't feel well' Thoughts brief with minimal information. Impaired memory. Denies SI or HI or AH or paranoia. Limited/poor insight, impaired judgment. Staff report patient eating and sleeping well but appearing anxious and complaining of feeling sick at times. - Time Spent With Patient Time Spent With Patient: 15 minutes - Pending Discharge Pending Discharge Within 24 Hours: No Pending Discharge Within 48 Hours: No ICD10 Worksheet Patient Problems: Problems Problem Status Onset Anxiety Acute Bipolar disorder Acute Insomnia Acute Major neurocognitive disorder Acute Asthma Acute Hyperlipidemia Acute Hypothyroid Acute
[2017-06-11] MEDS: MAG HYDROX/AL HYDROX/SIMETH 30 ML UDCUP PO PRN (15:44)
[2017-06-11] MEDS: MONTELUKAST SODIUM 10 MG TAB PO SCH (17:18)
[2017-06-11] MEDS: DIVALPROEX NA 250 MG TAB PO SCH (20:31)
[2017-06-12] MEDS: SENNOSIDES 1 TAB PO SCH ×2 (08:50→20:10)
[2017-06-12] MEDS: LEVOTHYROXINE 50 MCG TAB PO SCH (09:13)
[2017-06-12] MEDS: THIAMINE HCL 100 MG TAB PO SCH (09:13)
[2017-06-12] MEDS: LORazepam 0.5 MG TAB PO SCH ×2 (09:13→20:09)
[2017-06-12] MEDS: ATORVASTATIN CALCIUM 10 MG TAB PO SCH (09:13)
[2017-06-12] MEDS: ASPIRIN EC 81 MG TAB PO SCH (09:13)
[2017-06-12] MEDS: FAMOTIDINE 20 MG TAB PO SCH ×3 (09:13→20:10)
[2017-06-12] MEDS: FOLIC ACID 1 MG TAB PO SCH (09:13)
[2017-06-12] MEDS: MAG HYDROX/AL HYDROX/SIMETH 30 ML UDCUP PO PRN (15:40)
--- NOTE | 2017-06-12 16:02 | SOAPPROG ---
SOAP Progress Note Assessment/Plan: Assessment: Per Dr. Guajardo's notes: Assessment: Unspecified Bipolar Disorder Insomnia - improved Unspecified Anxiety Disorder Major Neurocognitive Disorder - probable moderate/severe Alzheimer's Disease Probable Tardive Dyskinesia Hypothyroidism - on synthroid Asthma/COPD - PRN Albuterol [employer] Benzodiazepine Use Possible sedative withdrawal - anxiety, nausea History of sleep apnea and recurrent non-compliance with CPAP/O2 History of catatonia/NMS in 2016 as well as pacemaker per [facility] notes Constipation - on senokot Patient is calm and slept overnight and eating well on unit but has severe memory impairment. Patient had nausea with Aricept trial and Ativan taper, now having increased anxiety. Plan: Continue Depakote 750mg QHS Increase Ativan 0.5mg BID due to possible withdrawal symptoms and history of catatonia/NMS Coordinate discharge planning with sister, brother, adult protective services Supportive care Typed letter that patient needs guardian - medical/financial decision making Plan: 06/12/17 15:57 1. Continue on Depakote for mood and Aricept trial for dementia 2. Significant cognitive impairments, unable to answer questions with any detail 3. Awaiting determination about guardianship 4. Will likely need database reporting consultant placement Subjective: Met with patient, reviewed chart and d/w staff. MD introduced himself and asked how patient was feeling. He hesitated and took long time to reply "OK." He wasn' t able to give any further details. Later MD observed patient filling out his menu selection for tomorrow. Patient seemed to have trouble making a selection. MD asked if he got what he wanted on his tray today, after long pause, he answered, "yes." Patient denies any suicidal or violent thoughts. He does not show signs of paranoia, hallucinations or responding to IS/ES. Objective: Vital Signs Temp Pulse Resp BP Pulse Ox 36.6 C 60 14 119/61 95 06/12/17 07:00 06/12/17 07:00 06/12/17 07:00 06/12/17 07:00 06/12/17 07:00 Laboratory Results 06/09/17 06:30 MSE: Affect: [place] Mood: "OK" TP: Disorganized, confused TC: Denies any SI/ HI, no hallucinations, no delusions Insight/Judgment: Significant cognitive impairment, including memory and executive fxn - Time Spent With Patient Time Spent With Patient: 20" - Pending Discharge Pending Discharge Within 24 Hours: No Pending Discharge Within 48 Hours: No ICD10 Worksheet Patient Problems: Problems Problem Status Onset Anxiety Acute Bipolar disorder Acute Insomnia Acute Major neurocognitive disorder Acute Asthma Acute Hyperlipidemia Acute Hypothyroid Acute
[2017-06-12] MEDS: MONTELUKAST SODIUM 10 MG TAB PO SCH (18:16)
[2017-06-12] MEDS: DIVALPROEX NA 250 MG TAB PO SCH (20:09)
[2017-06-13] MEDS: LEVOTHYROXINE 50 MCG TAB PO SCH (08:08)
[2017-06-13] MEDS: ASPIRIN EC 81 MG TAB PO SCH (08:08)
[2017-06-13] MEDS: ATORVASTATIN CALCIUM 10 MG TAB PO SCH (08:08)
[2017-06-13] MEDS: FAMOTIDINE 20 MG TAB PO SCH ×2 (08:08→19:45)
[2017-06-13] MEDS: FOLIC ACID 1 MG TAB PO SCH (08:08)
[2017-06-13] MEDS: LORazepam 0.5 MG TAB PO SCH ×2 (08:08→19:45)
[2017-06-13] MEDS: SENNOSIDES 1 TAB PO SCH (08:09)
[2017-06-13] MEDS: THIAMINE HCL 100 MG TAB PO SCH (08:11)
[2017-06-13] MEDS: MAG HYDROX/AL HYDROX/SIMETH 30 ML UDCUP PO PRN ×2 (08:11→13:30)
[2017-06-13] MEDS ORDERED: SENNOSIDES 1 TAB PO PRN (15:17)
--- NOTE | 2017-06-13 15:24 | SOAPPROG ---
SOAP Progress Note Assessment/Plan: Assessment: Per Dr. Guajardo's notes: Assessment: Unspecified Bipolar Disorder Insomnia - improved Unspecified Anxiety Disorder Major Neurocognitive Disorder - probable moderate/severe Alzheimer's Disease Probable Tardive Dyskinesia Hypothyroidism - on synthroid Asthma/COPD - PRN Albuterol Retirement Benzodiazepine Use Possible sedative withdrawal - anxiety, nausea History of sleep apnea and recurrent non-compliance with CPAP/O2 History of catatonia/NMS in 2016 as well as pacemaker per P notes Constipation - on senokot Patient is calm and slept overnight and eating well on unit but has severe memory impairment. Patient had nausea with Aricept trial and Ativan taper, now having increased anxiety. Plan: Continue Depakote 750mg QHS Increase Ativan 0.5mg BID due to possible withdrawal symptoms and history of catatonia/NMS Coordinate discharge planning with sister, brother, adult protective services Supportive care Typed letter that patient needs guardian - medical/financial decision making Plan: 06/12/17 15:57 1. Continue on Depakote for mood and Aricept trial for dementia 2. Significant cognitive impairments, unable to answer questions with any detail 3. Awaiting determination about guardianship 4. Will likely need terminal operations supervisor placement 06/13/17 15:18 1. Patient c/o diarrhea x 2 days, but staff have not been able to confirm. Will order Loperamide QID PRN, and will change Sennokot to PRN to prevent worsening loose stools. 2. Patient also c/o GI upset, unclear whether this is related to bowel issues or not. Has been using MOM. Will ask for hospitalist consult if condition does not improve. 3. CCM- stable, no significant improvement in mental status Subjective: Met with patient, reviewed chart and d/w staff. Patient c/o GI upset and told RN that he had diarrhea. However, he also told staff earlier this week he had "diarrhea 25 times in the last hour," and he was sitting in sight of staff most of that time, so he couldn't have been using the restroom as much as he reported. Given patient's lack of reliability, MD asked staff to monitor his bowel movements and reminded patient to show staff if he has loose stool. MD will change Sennokot to Prn and add Loperamide so that staff can treat with most appropriate medication when indicated. Patient has no other complaints at this time. Objective: Vital Signs Temp Pulse Resp BP Pulse Ox 36.2 C 69 14 124/65 H 96 06/12/17 18:12 06/13/17 06:54 06/13/17 06:54 06/13/17 06:54 06/13/17 06:54 Laboratory Results 06/09/17 06:30 MSE: Affect: Smiles when asked a questions instead of answering Mood: "OK" TP : Disorganized, confused, illogical TC: No SI/HI or psychotic sxs reported or observed Insight/Judgment: Impaired - Time Spent With Patient Time Spent With Patient: 15" - Pending Discharge Pending Discharge Within 24 Hours: No Pending Discharge Within 48 Hours: No ICD10 Worksheet Patient Problems: Problems Problem Status Onset Anxiety Acute Bipolar disorder Acute Insomnia Acute Major neurocognitive disorder Acute Asthma Acute Hyperlipidemia Acute Hypothyroid Acute
[2017-06-13] MEDS: MONTELUKAST SODIUM 10 MG TAB PO SCH (19:29)
[2017-06-13] MEDS: DIVALPROEX NA 250 MG TAB PO SCH (19:45)
[2017-06-14] MEDS: ATORVASTATIN CALCIUM 10 MG TAB PO SCH (08:08)
[2017-06-14] MEDS: FAMOTIDINE 20 MG TAB PO SCH ×2 (08:08→20:25)
[2017-06-14] MEDS: LORazepam 0.5 MG TAB PO SCH ×3 (08:08→20:25)
[2017-06-14] MEDS: ASPIRIN EC 81 MG TAB PO SCH (08:08)
[2017-06-14] MEDS: FOLIC ACID 1 MG TAB PO SCH (08:08)
[2017-06-14] MEDS: THIAMINE HCL 100 MG TAB PO SCH (08:09)
[2017-06-14] MEDS: LEVOTHYROXINE 50 MCG TAB PO SCH (08:10)
[2017-06-14] MEDS: LOPERAMIDE HCL 2 MG CAP PO PRN (08:46)
--- NOTE | 2017-06-14 11:39 | SOAPPROG ---
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 Plan: Continue Depakote 750mg QHS Reduce Ativan 0.25mg TID Coordinate discharge planning with sister, brother, adult protective services Supportive care. Discharge when 12/10 supportive care arranged Monitor recent GI symptoms 06/14/17 11:39 Subjective: CC: "Went to coloring group" "OK" Patient this AM denies problems. Denies vomiting or abdominal pain or diarrhea. Reports feeling anxious at times, unable to explain specific worries or concerns. Denies feeling agitated or irritable. Denies paranoia or AH or violent thoughts or feeling suicidal. Unable to explain goals or how he would care for self outside the hospital. Objective: Vital Signs Temp Pulse Resp BP Pulse Ox 36.7 C 59 L 16 127/61 H 91 L 06/14/17 06:26 06/14/17 06:26 06/14/17 06:26 06/14/17 06:26 06/14/17 06:26 Laboratory Results 06/09/17 06:30 Alert WM. Rocking and restless leg movements. AIM of lower face. Speech RRR. Mood 'OK' Affect euthymic, anxious at times. Thought brief with minimal information. Denies SI or AH or violent thoughts. Memory poor. Insight/ judgment impaired. Staff report over weekend patient complained of diarrhea, Senokot changed to PRN. Patient slept 10.5 hours[address]ways. Pleasant with staff. Able to attend groups briefly for a few minutes at a time. - Time Spent With Patient Time Spent With Patient: 10 minutes - Pending Discharge Pending Discharge Within 24 Hours: No Pending Discharge Within 48 Hours: No ICD10 Worksheet Patient Problems: Problems Problem Status Onset Anxiety Acute Bipolar disorder Acute Insomnia Acute Major neurocognitive disorder Acute Asthma Acute Hyperlipidemia Acute Hypothyroid Acute
[2017-06-14] MEDS: MONTELUKAST SODIUM 10 MG TAB PO SCH (17:20)
[2017-06-14] MEDS: GABAPENTIN 100 MG CAP PO PRN (17:22)
[2017-06-14] MEDS: DIVALPROEX NA 250 MG TAB PO SCH (20:24)
[2017-06-15] MEDS: FAMOTIDINE 20 MG TAB PO SCH ×2 (08:26→19:50)
[2017-06-15] MEDS: ATORVASTATIN CALCIUM 10 MG TAB PO SCH (08:26)
[2017-06-15] MEDS: FOLIC ACID 1 MG TAB PO SCH (08:26)
[2017-06-15] MEDS: ASPIRIN EC 81 MG TAB PO SCH (08:26)
[2017-06-15] MEDS: LORazepam 0.5 MG TAB PO SCH ×3 (08:27→19:50)
[2017-06-15] MEDS: THIAMINE HCL 100 MG TAB PO SCH (08:27)
[2017-06-15] MEDS: LEVOTHYROXINE 50 MCG TAB PO SCH (09:12)
[2017-06-15] MEDS: MAG HYDROX/AL HYDROX/SIMETH 30 ML UDCUP PO PRN (09:12)
--- NOTE | 2017-06-15 10:47 | SOAPPROG ---
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 Patient is calm and slept overnight and eating well on unit but has severe memory impairment. Plan: Continue Depakote 750mg QHS Continue Ativan 0.25mg TID Discontinue ASA due to stomach upset Coordinate discharge planning with sister, brother, adult protective services Supportive care. Discharge when 12/10 supportive care arranged. 06/15/17 10:46 Subjective: CC: "OK, alright" Patient reports having good appetite and sleeping well. Denies feeling agitated or irritable. Denies severe anxiety. Reports stomach upset and possible diarrhea. Unable to explain recent events or reasons for hospitalizations. Denies violent or suicidal thoughts. Objective: Vital Signs Temp Pulse Resp BP Pulse Ox 36.2 C 65 14 104/59 L 99 06/15/17 06:19 06/15/17 06:19 06/15/17 06:19 06/15/17 06:19 06/15/17 06:19 Laboratory Results 06/09/17 06:30 Alert WM, ambulatory, some rocking movements and AIM of lower face. Speech soft few words. Mood 'alright, OK' affect euthymic. Thoughts brief with limited information. Memory impaired. Denies SI or HI or AH. Insight poor. Staff report patient slept 9 hours, eating well, cooperative with staff, recurrent complaints of stomach upset or diarrhea. - Time Spent With Patient Time Spent With Patient: 10 minutes - Pending Discharge Pending Discharge Within 24 Hours: No Pending Discharge Within 48 Hours: No ICD10 Worksheet Patient Problems: Problems Problem Status Onset Anxiety Acute Bipolar disorder Acute Insomnia Acute Major neurocognitive disorder Acute Asthma Acute Hyperlipidemia Acute Hypothyroid Acute
[2017-06-15] MEDS ORDERED: ALBUTEROL 60 PUFFS/8 GM MDI IH PRN (11:30)
--- NOTE | 2017-06-15 14:38 | SOAPPROG ---
SOAP Progress Note Assessment/Plan: Assessment: Hematochezia and pain with defecation. Question of hemorrhoids. Trial of hemorrhoidal cream. Anemia. Repeat CBC and iron panel. Please get records if available regarding prior colonoscopy. If he does not have improved symptoms and if anemia proves to be iron deficient and no recent colonoscopy, it would be appropriate to refer him for a colonoscopy. 06/15/17 14:36 Subjective: Asked to see patient regarding hematochezia. Nurse reports that he had blood on his toilet tissue after he wiped. He initially was without any complaints and specifically denies nausea vomiting constipation diarrhea or abdominal pain. However upon further questioning he reports he has pain with defecation. He thinks he has had a colonoscopy in approximately the past year. He does not know where it was done or what physician did it. Objective: Vital Signs Temp Pulse Resp BP Pulse Ox 36.2 C 65 14 104/59 L 99 06/15/17 06:19 06/15/17 06:19 06/15/17 06:19 06/15/17 06:19 06/15/17 06:19 Laboratory Results 06/09/17 06:30 Physical Exam - Physical Exam General Appearance: WD/WN, alert, no apparent distress Respiratory: No respiratory distress, No accessory muscle use Abdomen: normal bowel sounds, non-tender, soft, No distended Neuro/Psych: no motor/sensory deficits, alert, normal mood/affect, other (Very vague historian), No abnormal gait ICD10 Worksheet Patient Problems: Problems Problem Status Onset Anxiety Acute Bipolar disorder Acute Insomnia Acute Major neurocognitive disorder Acute Asthma Acute Hyperlipidemia Acute Hypothyroid Acute
[2017-06-15] MEDS: MONTELUKAST SODIUM 10 MG TAB PO SCH (15:41)
[2017-06-15] MEDS: DIVALPROEX NA 250 MG TAB PO SCH (19:50)
[2017-06-16] MEDS: PREPARATION H 51 GM CRTUBE PR PRN (08:41)
[2017-06-16] MEDS: ATORVASTATIN CALCIUM 10 MG TAB PO SCH (08:41)
[2017-06-16] MEDS: FOLIC ACID 1 MG TAB PO SCH (08:41)
[2017-06-16] MEDS: THIAMINE HCL 100 MG TAB PO SCH (08:41)
[2017-06-16] MEDS: FAMOTIDINE 20 MG TAB PO SCH ×2 (08:42→20:37)
[2017-06-16] MEDS: LORazepam 0.5 MG TAB PO SCH ×3 (08:42→20:37)
[2017-06-16] MEDS: MAG HYDROX/AL HYDROX/SIMETH 30 ML UDCUP PO PRN (09:51)
[2017-06-16] MEDS: LEVOTHYROXINE 50 MCG TAB PO SCH (09:51)
--- NOTE | 2017-06-16 10:34 | SOAPPROG ---
SOAP Progress Note Assessment/Plan: Assessment: Unspecified Bipolar Disorder Insomnia - improved Unspecified Anxiety Disorder, custodial benzodiazepine use Major Neurocognitive Disorder - probable moderate/severe Alzheimer's Disease Probable Tardive Dyskinesia Hypothyroidism - on synthroid Asthma/COPD - PRN Albuterol Assisted Benzodiazepine Use History of sleep apnea and recurrent non-compliance with CPAP/O2 History of catatonia/NMS in 2016 as well as pacemaker per [facility] notes Adult Protective Services involvement Patient did not tolerate Aricept. Patient is calm and slept overnight and eating well on unit but has severe memory impairment. Plan: Continue Depakote 750mg QHS Continue Ativan 0.25mg TID Discontinue ASA due to stomach upset Coordinate discharge planning with sister, brother, adult protective services Supportive care. Discharge when 12/10 supportive care arranged. 06/16/17 10:35 Subjective: CC: "OK" Patient denies problems. Denies agitation or mood swings. Denies vomiting or abdominal pain. Reports sleeping well. Unable to explain diagnosis or reasons for hospitalization. Objective: Vital Signs Temp Pulse Resp BP Pulse Ox 36.4 C 69 17 109/65 95 06/15/17 17:54 06/15/17 17:54 06/15/17 17:54 06/15/17 17:54 06/15/17 17:54 Laboratory Results 06/16/17 06:15 06/09/17 06:30 Alert WM. Ambulatory. Speech RRR few words. Mood 'OK.' Affect euthymic. AIM lower face. Rocking movements. Thoughts briefly organized minimal detail. Denies SI or HI or AH or paranoia. Insight limited. Memory impaired. Spoke to sister Anita [phone]. She reports she is unable to provide support and supervision at home. Staff report patient slept 8 hours, cooperative with medications, complaining of anxiety at times. - Time Spent With Patient Time Spent With Patient: 15 minutes - Pending Discharge Pending Discharge Within 24 Hours: No Pending Discharge Within 48 Hours: No ICD10 Worksheet Patient Problems: Problems Problem Status Onset Anxiety Acute Bipolar disorder Acute Insomnia Acute Major neurocognitive disorder Acute Asthma Acute Hyperlipidemia Acute Hypothyroid Acute
[2017-06-16] MEDS: MONTELUKAST SODIUM 10 MG TAB PO SCH (16:26)
[2017-06-16] MEDS: DIVALPROEX NA 250 MG TAB PO SCH (20:37)
--- NOTE | 2017-06-17 07:30 | SOAPPROG ---
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 Patient is calm and slept overnight and eating well on unit, cooperative with caregivers and medication, but has severe memory impairment. Patients sister Anita has called unit several times since admission reporting she is unable to provide 24/7 supervision/support for patient; reportedly adult protective services have been called 4 times in past year due to concerns about patients well being. Patients brother in [place] is payee for patients pension. Plan: Continue Depakote 750mg QHS Continue Ativan 0.25mg TID Coordinate discharge planning with sister, brother, adult protective services Supportive care. Discharge when 24/7 supportive care arranged. Patient can be discharged home with sister if: 1. Documentation from case management department that patients sister is willing/able to care for patient in coordination with a home health agency. Patient needs supervision to prevent wandering and accidents and needs help with ADLS: hygiene, meals, medication compliance, transportation to follow up medical and psychiatric appointments. 2. Documentation from case management department explaining plan for Adult Protective Services to visit patient after discharge to monitor his safety 3. Documentation from case management regarding how patient will be transported home. A responsible adult will need to accompany patient to ensure he arrives home safely. 06/17/17 07:25 Subjective: CC: "Good" "Want to go home" Patient denies problems. Denies nausea or abdominal pain and reports he is hungry for breakfast. Denies agitation, irritability, or mood swings. Denies HI/SI. Reports wanting to return home with sister. Objective: Vital Signs Temp Pulse Resp BP Pulse Ox 36.4 C 63 16 116/72 96 06/15/17 17:54 06/16/17 20:00 06/16/17 20:00 06/16/17 20:00 06/16/17 20:00 Laboratory Results 06/16/17 06:15 06/09/17 06:30 CBC and iron studies WNL. Staff report on unit patient eating well, sleeping well, cooperative with medications, cooperative with staff. Alert WM, overweight, disheveled. Speech RRR few words. Mood 'good.' Affect odd, euthymic. Thoughts brief with poverty of information. Not oriented to month or year. Denies AH or paranoia or SI or HI. Limited/poor insight. - Time Spent With Patient Time Spent With Patient: 15 minutes - Pending Discharge Pending Discharge Within 24 Hours: Yes Pending Discharge Date: 06/18/17 Pending Discharge Time: 13:00 ICD10 Worksheet Patient Problems: Problems Problem Status Onset Anxiety Acute Bipolar disorder Acute Insomnia Acute Major neurocognitive disorder Acute Asthma Acute Hyperlipidemia Acute Hypothyroid Acute
[2017-06-17] MEDS: ATORVASTATIN CALCIUM 10 MG TAB PO SCH ×2 (08:44→08:49)
[2017-06-17] MEDS: LORazepam 0.5 MG TAB PO SCH ×3 (08:44→20:06)
[2017-06-17] MEDS: FOLIC ACID 1 MG TAB PO SCH ×2 (08:44→08:49)
[2017-06-17] MEDS: MAG HYDROX/AL HYDROX/SIMETH 30 ML UDCUP PO PRN (08:49)
[2017-06-17] MEDS: FAMOTIDINE 20 MG TAB PO SCH ×2 (08:50→20:06)
[2017-06-17] MEDS: THIAMINE HCL 100 MG TAB PO SCH (08:50)
[2017-06-17] MEDS: LEVOTHYROXINE 50 MCG TAB PO SCH (09:56)
[2017-06-17] MEDS: MONTELUKAST SODIUM 10 MG TAB PO SCH (15:52)
[2017-06-17] MEDS: DIVALPROEX NA 250 MG TAB PO SCH (20:06)
[2017-06-18] MEDS: LORazepam 0.5 MG TAB PO SCH ×3 (08:26→19:55)
[2017-06-18] MEDS: FOLIC ACID 1 MG TAB PO SCH (08:26)
[2017-06-18] MEDS: THIAMINE HCL 100 MG TAB PO SCH (08:27)
[2017-06-18] MEDS: FAMOTIDINE 20 MG TAB PO SCH ×2 (08:27→19:56)
[2017-06-18] MEDS: ATORVASTATIN CALCIUM 10 MG TAB PO SCH (08:27)
[2017-06-18] MEDS: MAG HYDROX/AL HYDROX/SIMETH 30 ML UDCUP PO PRN (09:13)
[2017-06-18] MEDS: LEVOTHYROXINE 50 MCG TAB PO SCH (09:13)
--- NOTE | 2017-06-18 11:22 | SOAPPROG ---
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 Patient is calm and slept overnight and eating well on unit, cooperative with caregivers and medication, but has severe memory impairment. Patients sister Anita has called unit several times since admission reporting she is unable to provide 24/7 supervision/support for patient; reportedly adult protective services have been called 4 times in past year due to concerns about patients well being. Patients brother in [place] is payee for patients pension. Plan: Continue Depakote 750mg QHS Continue Ativan 0.25mg TID Coordinate discharge planning with sister, brother, adult protective services Supportive care. Discharge when 24/7 supportive care arranged. Patient can be discharged home with sister if: 1. Documentation from case management department that patients sister is willing/able to care for patient in coordination with a home health agency. Patient needs supervision to prevent wandering and accidents and needs help with ADLS: hygiene, meals, medication compliance, transportation to follow up medical and psychiatric appointments. 2. Documentation from case management department explaining plan for Adult Protective Services to visit patient after discharge to monitor his safety 3. Documentation from case management regarding how patient will be transported home. A responsible adult will need to accompany patient to ensure he arrives home safely. 06/17/17 07:25 Subjective: CC: "I'm OK" Patient denies any new problems. Denies feeling tired or sedated. Reports wanting to return home with sister. Denies violent or suicidal thoughts. Denies paranoia or AH. Denies feeling agitated or irritable or anxious. No somatic complaints. Objective: Vital Signs Temp Pulse Resp BP Pulse Ox 36.6 C 69 18 128/79 H 99 06/18/17 07:09 06/18/17 08:40 06/18/17 08:40 06/18/17 08:40 06/18/17 08:40 Laboratory Results 06/16/17 06:15 03/21/18 06:30 Alert WM. Ambulatory with some AIM of lower face and rocking. Speech few words irregular rate. Mood 'OK.' Affect restricted. Thoughts briefly organized with only a few words. Denies SI or HI or AH. Denies paranoia. Insight limited. Staff report patient slept 9.5 hours. Calm on unit. Repeatedly agreeing to return home with sister. Pleasant with staff. - Time Spent With Patient Time Spent With Patient: 10 minutes - Pending Discharge Pending Discharge Within 24 Hours: No Pending Discharge Within 48 Hours: No ICD10 Worksheet Patient Problems: Problems Problem Status Onset Anxiety Acute Bipolar disorder Acute Insomnia Acute Major neurocognitive disorder Acute Asthma Acute Hyperlipidemia Acute Hypothyroid Acute
[2017-06-18] MEDS: MONTELUKAST SODIUM 10 MG TAB PO SCH (17:11)
[2017-06-18] MEDS: DIVALPROEX NA 250 MG TAB PO SCH (19:56)
[2017-06-19] MEDS: THIAMINE HCL 100 MG TAB PO SCH (08:05)
[2017-06-19] MEDS: FOLIC ACID 1 MG TAB PO SCH (08:05)
[2017-06-19] MEDS: ATORVASTATIN CALCIUM 10 MG TAB PO SCH (08:05)
[2017-06-19] MEDS: FAMOTIDINE 20 MG TAB PO SCH ×2 (08:05→19:54)
[2017-06-19] MEDS: LORazepam 0.5 MG TAB PO SCH ×3 (08:05→19:54)
[2017-06-19] MEDS: LEVOTHYROXINE 50 MCG TAB PO SCH (08:45)
[2017-06-19] MEDS: MAG HYDROX/AL HYDROX/SIMETH 30 ML UDCUP PO PRN (08:48)
--- NOTE | 2017-06-19 14:24 | SOAPPROG ---
SOAP Progress Note Assessment/Plan: Assessment: Per Dr. 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 Patient is calm and slept overnight and eating well on unit, cooperative with caregivers and medication, but has severe memory impairment. Patients sister Anita has called unit several times since admission reporting she is unable to provide 24/7 supervision/support for patient; reportedly adult protective services have been called 4 times in past year due to concerns about patients well being. Patients brother in [place] is payee for patients pension. Plan: Continue Depakote 750mg QHS Continue Ativan 0.25mg TID Coordinate discharge planning with sister, brother, adult protective services Supportive care. Discharge when 24/7 supportive care arranged. Patient can be discharged home with sister if: 1. Documentation from case management department that patients sister is willing/able to care for patient in coordination with a home health agency. Patient needs supervision to prevent wandering and accidents and needs help with ADLS: hygiene, meals, medication compliance, transportation to follow up medical and psychiatric appointments. 2. Documentation from case management department explaining plan for Adult Protective Services to visit patient after discharge to monitor his safety 3. Documentation from case management regarding how patient will be transported home. A responsible adult will need to accompany patient to ensure he arrives home safely. Plan: 06/19/17 14:14 1. Denies diarrhea or constipation, no blood in stool. 2. Repeat CBC on 06/16/17 indicated no anemia and TIBC was WNL. 3. Stable on current meds. 4. Possible d/c home with SOC and home health. 5. No current complaints. Subjective: Met with patient, reviewed chart and d/w staff. Patient denies any complaints today, no painful bowel movements or blood in stool. Patient has no obvious s/s of depression, jennifer or psychosis. He denies any SI/HI, no hallucinations and no paranoia. The discharge plan is for patient to return to live with SOC and have home health provide medical assistance. There is an APS pillowcase turner who will be following the patient's case once he returns home. Objective: Vital Signs Temp Pulse Resp BP Pulse Ox 36.4 C 66 16 108/56 L 98 06/19/17 06:44 06/19/17 06:44 06/19/17 06:44 06/19/17 06:44 06/19/17 06:44 Laboratory Results 06/16/17 06:15 06/09/17 06:30 MSE: Affect: Euthymic Mood: "OK" TP: Disorganized, confused at times TC: Denies any SI/HI, no evidence of jennifer or psychosis Insight/Judgment: Impaired d/t neurocognitive disorder - Time Spent With Patient Time Spent With Patient: 15" - Pending Discharge Pending Discharge Within 24 Hours: No Pending Discharge Within 48 Hours: No ICD10 Worksheet Patient Problems: Problems Problem Status Onset Anxiety Acute Bipolar disorder Acute Insomnia Acute Major neurocognitive disorder Acute Asthma Acute Hyperlipidemia Acute Hypothyroid Acute
[2017-06-19] MEDS: MONTELUKAST SODIUM 10 MG TAB PO SCH (17:41)
[2017-06-19] MEDS: DIVALPROEX NA 250 MG TAB PO SCH (19:54)
[2017-06-20 06:33] VITALS: RESP 18
[2017-06-20] MEDS: FAMOTIDINE 20 MG TAB PO SCH ×2 (08:15→19:40)
[2017-06-20] MEDS: FOLIC ACID 1 MG TAB PO SCH (08:15)
[2017-06-20] MEDS: ATORVASTATIN CALCIUM 10 MG TAB PO SCH (08:15)
[2017-06-20] MEDS: THIAMINE HCL 100 MG TAB PO SCH (08:15)
[2017-06-20] MEDS: LORazepam 0.5 MG TAB PO SCH ×3 (08:15→19:40)
[2017-06-20] MEDS: LEVOTHYROXINE 50 MCG TAB PO SCH (08:15)
[2017-06-20] MEDS: PREPARATION H 51 GM CRTUBE PR PRN (09:05)
[2017-06-20] MEDS: LOPERAMIDE HCL 2 MG CAP PO PRN (09:05)
[2017-06-20] MEDS: GABAPENTIN 100 MG CAP PO PRN (12:31)
--- NOTE | 2017-06-20 13:36 | SOAPPROG ---
SOAP Progress Note Assessment/Plan: Assessment: Per Dr. 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 Patient is calm and slept overnight and eating well on unit, cooperative with caregivers and medication, but has severe memory impairment. Patients sister Anita has called unit several times since admission reporting she is unable to provide 24/7 supervision/support for patient; reportedly adult protective services have been called 4 times in past year due to concerns about patients well being. Patients brother in [place] is payee for patients pension. Plan: Continue Depakote 750mg QHS Continue Ativan 0.25mg TID Coordinate discharge planning with sister, brother, adult protective services Supportive care. Discharge when 24/7 supportive care arranged. Patient can be discharged home with sister if: 1. Documentation from case management department that patients sister is willing/able to care for patient in coordination with a home health agency. Patient needs supervision to prevent wandering and accidents and needs help with ADLS: hygiene, meals, medication compliance, transportation to follow up medical and psychiatric appointments. 2. Documentation from case management department explaining plan for Adult Protective Services to visit patient after discharge to monitor his safety 3. Documentation from case management regarding how patient will be transported home. A responsible adult will need to accompany patient to ensure he arrives home safely. Plan: 06/19/17 14:14 1. Denies diarrhea or constipation, no blood in stool. 2. Repeat CBC on 06/16/17 indicated no anemia and TIBC was WNL. 3. Stable on current meds. 4. Possible d/c home with SOC and home health. 5. No current complaints. 06/20/17 13:33 1. Stable on current meds. 2. D/C home with SOC and home health Subjective: Met with patient, reviewed chart, d/w staff. Patient presents pleasant and cheerful, smiling. Patient talks to sister by phone several times each day. He says he is looking forward to going home "soon." Denies any complaints, though staff report patient is still c/o diarrhea and constipation both at different times. He has not been able to show staff any loose stool and staff do not report any blood in toilet bowel. Objective: Vital Signs Temp Pulse Resp BP Pulse Ox 36.5 C 59 L 18 119/60 94 06/20/17 06:32 06/20/17 06:32 06/20/17 06:32 06/20/17 06:32 06/20/17 06:32 Laboratory Results 06/16/17 06:15 06/09/17 06:30 MSE: Affect: Elevated Mood: "Good" TP: Disorganized, irrational TC: Denies any SI/HI, no evidence of psychosis, preoccupied with GI issues and bowels Insight/Judgment: Impaired - Time Spent With Patient Time Spent With Patient: 15" - Pending Discharge Pending Discharge Within 24 Hours: No Pending Discharge Within 48 Hours: Yes Pending Discharge Date: 06/22/17 (Possible d/c home with SOC) Pending Discharge Time: 11:00 ICD10 Worksheet Patient Problems: Problems Problem Status Onset Anxiety Acute Bipolar disorder Acute Insomnia Acute Major neurocognitive disorder Acute Asthma Acute Hyperlipidemia Acute Hypothyroid Acute
[2017-06-20] MEDS: MONTELUKAST SODIUM 10 MG TAB PO SCH (17:22)
[2017-06-20 17:43] VITALS: BP 118/80; PULSE 75; TEMP 97.3; O2SAT 99
[2017-06-20] MEDS: DIVALPROEX NA 250 MG TAB PO SCH (19:39)
[2017-06-21] MEDS: LORazepam 0.5 MG TAB PO SCH (08:17)
[2017-06-21] MEDS: THIAMINE HCL 100 MG TAB PO SCH (08:17)
[2017-06-21] MEDS: LEVOTHYROXINE 50 MCG TAB PO SCH (08:17)
[2017-06-21] MEDS: FOLIC ACID 1 MG TAB PO SCH (08:17)
[2017-06-21] MEDS: ATORVASTATIN CALCIUM 10 MG TAB PO SCH (08:17)
[2017-06-21] MEDS: FAMOTIDINE 20 MG TAB PO SCH (08:17)
--- NOTE | 2017-06-21 21:25 | BDS ---
[f rep st] BEHAVIORAL HEALTH DISCHARGE SUMMARY IDENTIFICATION: This is a 66-year-old, single white male, who lives with his sister Anita in a condominium that he owns in [place]. 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 His brother Kodi in [place] is his payee for his pension. The patient has a long history of bipolar disorder, anxiety, and insomnia, last treated as an outpatient at [facility] in [place]. REASON FOR ADMISSION: Please see initial psychiatric evaluation from June 04, 2017. The patient had been living in his own condominium with his sister. His brother was his payee for his pension and was paying his sister to care for him. The patient apparently was anxious, agitated, not sleeping, scratching at himself, and the patient's sister felt overwhelmed and unable to care for him. The patient was admitted to [address] [place] [address] on an M1 hold for grave disability. HOSPITAL COURSE: The patient on the inpatient unit was on an M1 hold and then placed on short-term certification for grave disability, due to symptoms of anxiety, insomnia, agitation, disorganization, and severe cognitive impairment. The patient had a severe cognitive impairment with a SLUMS score of 11/30. The patient had a normal head CT scan that just showed atrophy on June 04, 2017. His other blood work was negative for altered mental status medical causes. The patient was diagnosed with major neurocognitive disorder, likely Alzheimer disease. The patient's sister reported the patient had a several year decline in functioning over the past 2 years, had been an emergency rooms and fdc placements, due to difficulty caring for himself, poor self- care, disorganization, falls, and confusion. The patient apparently had been off psychiatric medications. Records from [facility] indicated the patient has a long history of bipolar disorder, anxiety, and insomnia. He had long-term benzodiazepine use for anxiety and insomnia for several years. He possibly had a history of neuroleptic malignant syndrome or catatonia treated in 2016. The patient had been taking unclear amounts of Ativan prior to admission. The patient initially was anxious, pacing, disorganized, confused with impaired memory. The patient was placed on Depakote as a mood stabilizer for bipolar disorder and started on low-dose lorazepam for anxiety, insomnia, and history of catatonia. The patient appeared stable and sleeping well with the combination of Depakote and lorazepam. The patient was given a trial of Aricept, but had severe nausea and this was discontinued. The patient on the unit required assistance with ADLs, including bathing and doing his laundry. He was able to feed himself and was cooperative and pleasant with staff. The patient denied any thoughts to hurt himself or others. Denied hallucinations or paranoia. He did have some intermittent somatic complaints, including upset stomach, diarrhea, and constipation. This resolved with p.r.n. medications. The discharge plan was complicated by the fact that apparently Adult Protective Services had been called to the patient's home numerous times, possibly 4 times in the past year, due to concerns that his sister was not caring for him. The patient's sister reported that she was overwhelmed and had difficulty monitoring and supervising the patient. She was given information about Alzheimer disease and the fact that the patient needed supervision to prevent accidents and wandering and needed support with all his activities of daily living including meals, hygiene, and taking medication and getting into followup appointments. The patient apparently had a home health agency that was visiting intermittently. Adult Protective Services was contacted after the patient's sister reported she would not allow the patient to return home, even though the patient owned the home and she was being paid by the patient's brother in [place] to care for the patient using the patient's pension. After Adult Protective Services became involved again, the patient's sister was agreeable for the patient to return home as long as the patient had home health agency visiting the patient to help with care and support. Adult Protective Services agreed to continue monitoring the patient's condition in the community. CONDITION ON DISCHARGE: He is an alert white male in no acute distress. He is ambulatory. He is overweight. He has mild abnormal involuntary movements of his lower face and some rocking movements. His speech was fragmented with few words. His thoughts are briefly organized with minimal information. His memory is severely impaired. He is not oriented to month, year, or president or the name of the hospital. He denies paranoia or hallucinations. He denies any suicidal or homicidal thoughts. His insight is limited to poor. His judgment is questionable. PROCEDURES: The patient had a head CT scan June 04, 2017, that showed atrophy. The patient had a hospital consult by Dr. Zaidi on June 04, 2017. LABS PENDING: None. LAB RESULTS: Include the following: White blood cell count 5.3, hemoglobin 15 , platelet count 187. Sodium 145, potassium 4.3, creatinine 0.7, glucose 69, calcium 9.0, iron 66, total iron-binding capacity 336, alkaline phosphatase 206 , total bilirubin 0.7, AST 30, ALT 31, B12 was 930, TSH 3.0, albumin 3.6. His urine drug screen was negative upon admission. His Depakote level was 76. ADVANCED DIRECTIVES: The patient does not have advanced directives, but his sister and his brother are his next-of-kin. METABOLIC SCREENING: The patient had a fasting glucose of 69, which is in the normal range. He, in the past, had a lipid panel that was normal, and that was in 2013 and is currently on Lipitor from his primary care provider. ALCOHOL USE DISORDER SCREENING: The patient denied alcohol use had but had a past history of alcohol abuse and was taking Thiamine. The patient was not referred to substance use counseling due to dementia. NICOTINE USE DISORDER SCREENING: The patient denies smoking cigarettes. DISCHARGE DIAGNOSES: 1. Unspecified bipolar disorder. 2. Insomnia. 3. Unspecified anxiety disorder. 4. Long-term benzodiazepine use. 5. Major neurocognitive disorder, probable moderate to severe Alzheimer disease. 6. Tardive dyskinesia. 7. Hypothyroidism. 8. History of asthma and hyperlipidemia 9. History of sleep apnea with recurrent noncompliance with CPAP and oxygen. 10. Past history of catatonia or neuroleptic malignant syndrome in 2016, treated at an outside facility, per [facility] records. 11. History of pacemaker. 12. Adult Protective Services involvement. DISCHARGE MEDICATIONS: Include the following: Albuterol inhaler 2 puffs p.o. q.4 hours p.r.n. for asthma, Lipitor 10 mg p.o. daily for hyperlipidemia, Depakote 750 mg p.o. q.h.s. for bipolar disorder, famotidine 20 mg p.o. b.i.d. for gastroesophageal reflux disease, folic acid 1 mg p.o. daily, thiamine 100 mg p.o. daily, Lorazepam 0.25 mg p.o. t.i.d. for anxiety and history of catatonia, Singulair 10 mg p.o. daily. The prescriptions were faxed to [facility] so that [facility] agency can olive picker his prescriptions and organize his pill box. DISPOSITION: The patient is leaving the unit with Adult Protective Services worker, who will transport the patient home. Adult Protective Services will monitor the patient in his home and the patient will continue to receive in- home health care services with [facility] agency. They will assist the patient in obtaining follow up mental health and medical care. LEGAL STATUS: The patient was admitted on an M1 hold and then placed on short- term certification for grave disability. This will be terminated upon discharge. /[id number]/MODL MTDD
== END 2017-06-21 11:37 | disposition home health service (06) | DRG 885 ==
LOC: EDUNIT# → BBEH 23:02
PROVIDERS: ADMIT Psychiatry & Neurology Behavioral Neurology & Neuropsychiatry
DX: F31.9 Bipolar disorder, unspecified (principal); G47.00 Insomnia, unspecified; F41.9 Anxiety disorder, unspecified; Z79.899 Other long term (current) drug therapy; G30.0 Alzheimer's disease with early onset; F02.80 Dementia in other diseases classified elsewhere, unspecified severity, without behavioral disturbance, psychotic disturbance, mood disturbance, and anxiety; G24.01 Drug induced subacute dyskinesia; E03.9 Hypothyroidism, unspecified; J45.909 Unspecified asthma, uncomplicated; E78.5 Hyperlipidemia, unspecified; E66.09 Other obesity due to excess calories; G47.33 Obstructive sleep apnea (adult) (pediatric); Z95.0 Presence of cardiac pacemaker
CPT/HCPCS: 80305; 82607-90; 97116-GP; 97162-GP; G0480; G8978-GP-CI; G8978-GP-CJ; G8979-GP-CI; G8980-GP-CI